=== PATIENT | male | born 2000 | race Caucasian/White ===

== ENCOUNTER 2020-08-06 10:46 | Emergency (ER) | payer OTHER ==
[2020-08-06] MEDS ORDERED: Albuterol 0.083% 2.5 MG/3 ML Neb Soln NEB ONE (11:44)
--- NOTE | 2020-08-06 11:50 | EDM.PDOC ---
ED HPI GENERAL MEDICAL PROBLEM - General Chief Complaint: Respiratory Problem Stated Complaint: ASTHMA Time Seen by Provider: 08/06/20 11:46 Source of Information: Reports: Patient History Limitations: Reports: No Limitations - History of Present Illness INITIAL COMMENTS - FREE TEXT/NARRATIVE: Presents with cough and SOB x 1 week. He has a prior history of Asthma. He is using Primatene Mist but is out of Albuterol. Denies fevers or known exposure to COVID-19. He does not smoke or vape. Duration: Week(s): (1) - Related Data Allergies Allergy/AdvReac Type Severity Reaction Status Date / Time No Known Allergies Allergy Verified 08/06/20 11:56 Home Meds: Home Meds Albuterol [Ventolin HFA] 2 puff INH Q4H PRN #1 inhaler 08/06/20 [Rx] Albuterol/Ipratropium [DuoNeb 3.0-0.5 MG/3 ML] 3 ml .XX BID PRN 08/06/20 [History] predniSONE [Prednisone] 60 mg PO DAILY 5 Days #15 tablet 08/06/20 [Rx] Past Medical History Respiratory History: Reports: Asthma Social & Family History - Tobacco Use Tobacco Use Status *Q: Never Tobacco User ED ROS GENERAL - Review of Systems Review Of Systems: Comprehensive ROS is negative, except as noted in HPI. ED EXAM, GENERAL - Physical Exam Exam: See Below Exam Limited By: No Limitations General Appearance: Alert, WD/WN, No Apparent Distress Nose: Normal Inspection Throat/Mouth: No Airway Compromise Head: Atraumatic, Normocephalic Neck: Full Range of Motion Respiratory/Chest: No Respiratory Distress, Wheezing Cardiovascular: Regular Rate, Rhythm, No Murmur Back Exam: Full Range of Motion Extremities: Normal Range of Motion Neurological: Alert, Normal Cognition Psychiatric: Normal Affect, Normal Mood Skin Exam: Warm, Dry, Intact Course - Vital Signs Last Recorded V/S: Last Vital Signs Temp 36.5 C 08/06/20 11:44 Pulse 79 08/06/20 11:44 Resp 22 H 08/06/20 11:44 BP 116/79 08/06/20 11:44 Pulse Ox 97 08/06/20 11:44 - Orders/Labs/Meds Orders: Active Orders 24 hr Category Date Time Status RT Aerosol Therapy [RC] ASDIRECTED Care 08/06/20 11:44 Active CXR [Chest 1V Frontal] [CR] Stat Exams 08/06/20 11:45 Taken Labs: Laboratory Tests 08/06/20 Range/Units 12:15 SARS-CoV-2 RNA (RICHARD) Negative (NEGATIVE) Meds: Medications Discontinued Medications Generic Name Dose Route Start Last Admin Trade Name Freq PRN Reason Stop Dose Admin Albuterol 2.5 mg 08/06/20 11:44 08/06/20 12:10 Proventil Neb Soln NEB 08/06/20 11:45 2.5 mg ONETIME ONE Administration - Radiology Interpretation Free Text/Narrative:: CXR: No acute process. (ED provider interpretation) - Re-Assessments/Exams Free Text/Narrative Re-Assessment/Exam: 08/06/20 13:47 Lungs CTA after Albuterol Neb. Departure - Departure Time of Disposition: 13:47 Disposition: Home, Self-Care 01 Condition: Good Clinical Impression: Exacerbation of asthma Qualifiers: Asthma severity: moderate Asthma persistence: unspecified Qualified Code(s): J45.901 - Unspecified asthma with (acute) exacerbation - Discharge Information *PRESCRIPTION DRUG MONITORING PROGRAM REVIEWED*: No *COPY OF PRESCRIPTION DRUG MONITORING REPORT IN PATIENT ALESSIA: Not Applicable Prescriptions: predniSONE [Prednisone] 60 mg PO DAILY 5 Days #15 tablet Albuterol [Ventolin HFA] 2 puff INH Q4H PRN #1 inhaler PRN Reason: Wheezing Instructions: Asthma, Adult, [id number] Referrals: PCP,None [Primary Care Provider] - Forms: ED Department Discharge Additional Instructions: Fill prescriptions for Albuterol and Prednisone at [facility] and take as directed. Follow up with your primary physician in 2-3 days. Return to the ER if symptoms worsen. Sepsis Event Note (ED) - Focused Exam Vital Signs: Vital Signs Temp Pulse Resp BP Pulse Ox 08/06/20 11:44 36.5 C 79 22 H 116/79 97 - My Orders Last 24 Hours: My Active Orders 08/06/20 11:44 RT Aerosol Therapy [RC] ASDIRECTED 08/06/20 11:45 CXR [Chest 1V Frontal] [CR] Stat - Assessment/Plan Last 24 Hours: My Active Orders 08/06/20 11:44 RT Aerosol Therapy [RC] ASDIRECTED 08/06/20 11:45 CXR [Chest 1V Frontal] [CR] Stat
--- NOTE | 2020-08-06 15:04 | CR ---
INDICATION: Cough. Shortness of breath. Question COVID. CHEST, ONE VIEW: An AP upright portable view of the chest was obtained 08/06/20 - no comparisons. The heart, mediastinum and bony thorax were unremarkable except to note a trivial degree of dextroconvex scoliosis at the upper thoracic spine. A definite active infiltrate or effusion was not identified. However, there is an appearance of bronchial wall cuffing of mild degree at the lung bases, which could be on the basis of active peribronchial disease and should be correlated clinically. This appearance could also be on the basis of fibrosis which is probably less likely at this age. IMPRESSION: Basilar bronchial wall cuffing - correlate clinically. MTDD
== END 2020-08-06 14:20 | disposition home or self-care (01) ==
LOC: FB.ED 10:46
DX: J45.901 Unspecified asthma with (acute) exacerbation (principal); Z20.828 Contact with and (suspected) exposure to other viral communicable diseases
CPT/HCPCS: 71045; 94640; 99285-25; U0002